=== PATIENT | female | born 2000 | race African-American/Black ===

== ENCOUNTER 2019-11-28 23:19 | Emergency (ER) | payer BC, MEDICAID ==
[~2019-11-28] VITALS: Ht 157.5 cm; Wt 49.9 kg
--- NOTE | 2019-11-28 23:24 | NUR ---
ED Nurse Note: Patient brought in by ambulance [id number] from home d/t lung pain, hx of cystic fibrosis. Patient aao x 4 and ambulatory. Patient reports taking dilaudid 2mg at home prior to arrival. Patient pain at 6/10. Patient changed into gown and placed on casey saw operator. No acute distress noted during assessment.
[2019-11-28 23:25] VITALS: BP 120/78
--- NOTE | 2019-11-28 23:27 | NUR ---
ED Nurse Note: Per patient, pain is on the right lung. States that she has had this pain before and usually indicative of infection. Pain started this morning.
--- NOTE | 2019-11-28 23:37 | NUR ---
ED Nurse Note: ERMD at bedside
--- NOTE | 2019-11-28 23:44 | NUR ---
ED Nurse Note: Xray at bedside
--- NOTE | 2019-11-28 23:44 | Emergency Room Report ---
History of Present Illness General Chief Complaint: Pain Source: Patient Present Illness HPI This is a 19-year-old female with history of cysts peripheral fibrosis. She uses albuterol and also is chronically on azithromycin. She presents with chief complaint of chest pain and shortness of breath. Onset all day. No relief with Dilaudid and albuterol. Pain is mostly on the right side now. Has a productive cough. No fever chills but no nausea no vomiting. Pain is 8 out of 10. Worse with inspiration. Better with rest. She feels like this is a pneumonia similar to previous infection. Had negative COVID test about a month ago. Allergies: Coded Allergies: VANCOMYCIN (Verified Allergy, Unknown, 11/28/19) COVID-19 Screening Contact w/high risk pt: No Recent Travel to affected area: No Experienced COVID-19 symptoms?: No COVID-19 Testing performed GAS AP[employer]IANCE MECH[employer]IC: No Patient History Past Medical History: see triage record, old chart reviewed Past Surgical History: other Pertinent Family History: none Social History: Denies: smoking Now: No Immunizations: UTD Reviewed Nursing Documentation: PMH: Agreed; PSxH: Agreed Review of Systems Eye: Denies: eye pain, blurred vision ENT: Denies: ear pain, nose congestion, throat swelling Respiratory: Reports: cough, shortness of breath Cardiovascular: Reports: chest pain; Denies: palpitations Gastrointestinal: Denies: abdominal pain, diarrhea, nausea, vomiting Musculoskeletal: Denies: back pain, joint pain Skin: Denies: rash Neurological: Denies: headache, numbness Endocrine: Denies: increased thirst, increased urine Hematologic/Lymphatic: Denies: easy bruising All Other Systems: negative except mentioned in HPI Physical Exam Vital Signs Date Time Temp Pulse Resp B/P (MAP) Pulse Ox O2 Delivery O2 Flow Rate FiO2 11/28/19 23:21 97.9 100 18 140/76 (97) 99 Room Air vitals normal Sp02 EP Interpretation: reviewed, normal General Appearance: alert, mild distress, thin, Chronically Ill Head: normocephalic, atraumatic Eyes: bilateral eye PERRL, bilateral eye EOMI ENT: hearing grossly normal, normal pharynx Neck: full range of motion, supple, no meningismus Respiratory: chest non-tender, decreased breath sounds Cardiovascular #1: regular rate, rhythm, no murmur Gastrointestinal: normal bowel sounds, non tender, no mass, no organomegaly, no bruit, non-distended Musculoskeletal: back normal, normal range of motion, gait/station normal Psychiatric: mood/affect normal Medical Decision Making Diagnostic Impression: Primary Impression: Cystic fibrosis exacerbation Additional Impressions: Pneumonia Qualified Codes: J18.9 - Pneumonia, unspecified organism Bronchiectasis with acute lower respiratory infection ER Course This is a 19-year-old female with cystic fibrosis. Shortness and cough. Chest x-ray show bronchiectasis in right perihilar/right upper lobe infiltrate. Unknown chronicity of this since this is her first time here. Because of the COVID pandemic, will send cover testing also. Rapid COVID is negative. Because of her increasing dyspnea and pain, will admit for IV antibiotics and pain control. I discussed the case with Dr. Tamayo a design technology teacher at [facility]. She knows the patient well. She accepted patient for transfer for continuation of care of higher level of care. This patient was evaluated in the context of the global COVID-19 pandemic, which necessitated consideration that the patient might be at risk for infection with the [id number] virus that causes COVID-19. Institutional protocols and algorithms that pertain to the evaluation of patients at risk for COVID-19 and the state of rapid change based on information released by multiple regulatory bodies including the CDC and federal and state organizations. These policies and algorithms were followed during the patient' s care in the ED. Rhythm Strip Diag. Results EP Interpretation: yes Rate: 102 Rhythm: NSR, no PVC's, no ectopy Chest X-Ray Diagnostic Results Chest X-Ray Diagnostic Results : Chest X-Ray Ordered: Yes # of Views/Limited/Complete: 1 View Indication: Shortness of Breath EP Interpretation: Yes Interpretation: no effusion, no pneumothorax, other - bronchiectasis, RUL infiltrate Impression: Other - RUL infiltrate Electronically Signed by: Jaylon Ga MD Last Vital Signs Date Time Temp Pulse Resp B/P (MAP) Pulse Ox O2 Delivery O2 Flow Rate FiO2 11/28/19 23:25 97.9 107 23 120/78 96 Room Air Status: improved Disposition: SHORT-TERM HOSP Condition: Stable Referrals: NOT CHOSEN IPA/,REFERRING (PCP) Jaylon Ga MD Nov 28, 2019 23:44
[2019-11-28] MEDS ORDERED: HYDROmorphone 1mg/ml Carpuject IVP ONE (23:45)
[2019-11-28] MEDS ORDERED: Albuterol ud Inhalation HHN ONE (23:45)
[2019-11-28] MEDS ORDERED: Solu-MEDROL 125mg Inj IVP ONE (23:45)
[2019-11-29] MEDS ORDERED: Piperacillin/Tazobactam 3.375 GM in NS 110 ML IVPB ONE ×2
[2019-11-29] MEDS ORDERED: LORazepam 1mg tab ORAL ONE
--- NOTE | 2019-11-29 00:03 | NUR ---
ED Nurse Note: Patient states they usually give her Ativan prior to IV insertion d/t anxiety, ERMD aware. Ativan PO administered.
--- NOTE | 2019-11-29 00:10 | Diagnostic Imaging Report ---
EXAM: XR Chest, 1 View CLINICAL HISTORY: SOB TECHNIQUE: Frontal view of the chest. COMPARISON: None. FINDINGS: Lungs: There is a 5.5 x 5 cm right perihilar mass lesion worrisome for possible neoplasm. Interstitial lung disease which predominate in the upper lobes. Pleural space: Unremarkable. No pneumothorax. Heart: Heart is normal in size. Mediastinum: Unremarkable. Bones/joints: Osteopenia. Other findings: There is hyperaeration. IMPRESSION: 1. Right perihilar mass worrisome for neoplasm. CT imaging of the chest is highly advised to follow. 2. Hyperaeration. 3. Advanced interstitial lung disease. 4. Osteopenia.
--- NOTE | 2019-11-29 00:15 | NUR ---
ED Nurse Note: Left forearm 20g IV established, blood collected and sent to lab.
--- NOTE | 2019-11-29 00:50 | NUR ---
ED Nurse Note: Urine collected and sent to lab.
[2019-11-29 01:04] LABS: BASOPHILS % (AUTO) 0.9 % (0.0-2.0); EOSINOPHILS % (AUTO) 0.9 % (0.0-3.0); HEMATOCRIT 37.5 % (37.0-47.0); HEMOGLOBIN 11.6 G/DL (12.0-16.0); LYMPHOCYTES % (AUTO) 12.1 % (20.0-45.0); MEAN CORPUSCULAR VOLUME 90 FL (80-99); MONOCYTES % (AUTO) 5.8 % (1.0-10.0); NEUTROPHILS % (AUTO) 80.3 % (45.0-75.0); PLATELET COUNT 426 K/UL (150-450); RED BLOOD COUNT 4.19 M/UL (4.20-5.40); RED CELL DISTRIBUTION WIDTH 13.7 % (11.6-14.8)
[2019-11-29 01:08] LABS: APPEARANCE,URINE CLOUDY; BILIRUBIN, URINE NEGATIVE (NEGATIVE); GLUCOSE, URINE (UA) 1+ (NEGATIVE); KETONES,URINE 1+ (NEGATIVE); LEUKOCYTE ESTERASE ,URINE 1+ (NEGATIVE); NITRITE,URINE NEGATIVE (NEGATIVE); PH,URINE 5 (4.5-8.0); PROTEIN,URINE 2+ (NEGATIVE); UROBILINOGEN,URINE NORMAL MG/DL (0.0-1.0)
[2019-11-29 01:10] LABS: COLOR,URINE YELLOW
[2019-11-29 01:13] LABS: ANION GAP 11 mmol/L (5-15); BLOOD UREA NITROGEN 10 mg/dL (7-18); CALCIUM 8.4 MG/DL (8.5-10.1); CARBON DIOXIDE 24 MMOL/L (21-32); CHLORIDE 100 MMOL/L (98-107); POTASSIUM 3.9 MMOL/L (3.5-5.1); SODIUM 135 MMOL/L (136-145)
[2019-11-29 01:18] LABS: ALANINE AMINOTRANSFERASE 16 U/L (12-78); ALBUMIN 3.1 G/DL (3.4-5.0); ALBUMIN/GLOBULIN RATIO 0.6 (1.0-2.7); ALKALINE PHOSPHATASE 112 U/L (46-116); ASPARTATE AMINO TRANSFERASE 19 U/L (15-37); BILIRUBIN,TOTAL 0.4 MG/DL (0.2-1.0)
--- NOTE | 2019-11-29 01:33 | NUR ---
ED Nurse Note: Lactic reflex collected and sent to lab
[2019-11-29 01:34] VITALS: BP 113/77
--- NOTE | 2019-11-29 02:04 | NUR ---
ED Nurse Note: Report given to KELLY Wyatt at [facility].
[2019-11-29 02:54] VITALS: BP 110/78
--- NOTE | 2019-11-29 02:54 | NUR ---
ER DISCHARGE NOTE: Patient is cleared to be transferred to [facility] per ERMD. Patient aao x 4 and ambulatory with stable vital signs upon transfer. Patient was transported via gurney with [facility]. ID band removed. Ambulance personnel took all belongings. Patient stable upon discharge.
== END 2019-11-29 02:54 | disposition short-term general hospital (02) ==
LOC: EDBD 23:19 → EMR 23:42
DX: E84.9 Cystic fibrosis, unspecified (principal); J18.9 Pneumonia, unspecified organism; J47.0 Bronchiectasis with acute lower respiratory infection; Z88.8 Allergy status to other drugs, medicaments and biological substances
CPT/HCPCS: 36415; 71045; 80053; 81003; 83605; 85025; 87040; 96361; 96365; 96367; 96375; 99285; J1170; J1956; J2405; J2543; J2930; J7030; U0002